=== PATIENT | female | born 1940 | race Caucasian/White ===

== ENCOUNTER 2017-09-04 08:48 | Emergency (ER) | payer MEDICARE, OTHER ==
[~2017-09-04] VITALS: Ht 167.6 cm; Wt 81.0 kg
[~2017-09-04 08:48] MED LIST: ASPI325T17 PO; ATOR20TA9 PO; COD1CAPS2 PO; GLUC1TAB21 PO; HYDR-3240 PO; LEVO112T2 PO; MULT-658 PO; TRAM50TA2 PO; TURM500C7 PO
[2017-09-04] MEDS ORDERED: DIPH,PERTUSS(ACELL),TET VAC/PF 0.5 ML IM-VACC ONE ×2 (09:30→09:46)
[2017-09-04 10:21] VITALS: BP 134/74
[2017-09-04] MEDS ORDERED: BACITRACIN ZINC OINT 500U/GM, 0.9 GM ONE (11:11)
== END 2017-09-04 11:23 | disposition home or self-care (01) ==
LOC: ED 09:40
DX: S30.0XXA Contusion of lower back and pelvis, initial encounter (principal); S09.90XA Unspecified injury of head, initial encounter; S50.311A Abrasion of right elbow, initial encounter; W19.XXXA Unspecified fall, initial encounter; Y93.89 Activity, other specified; Y92.312 Tennis court as the place of occurrence of the external cause; Y99.9 Unspecified external cause status
CPT/HCPCS: 70450; 72220; 90471; 90715; 99284

== ENCOUNTER → 2020-01-20 | Outpatient (CLI) | payer MEDICARE, OTHER ==
[~2020-01-20] MED LIST changes: +ASPI-496 PO; +ATOR20TA37 PO; -ATOR20TA9 PO; +CHOL500045 PO; -COD1CAPS2 PO; +COD1CAPS6 PO; +SENN-31 PO
== END | disposition home or self-care (01) ==
LOC: STAR 08:54
PROVIDERS: ATTEND Orthopaedic Surgery
DX: Z01.818 Encounter for other preprocedural examination (principal); Z11.59 Encounter for screening for other viral diseases; M19.072 Primary osteoarthritis, left ankle and foot
CPT/HCPCS: 36415; 87635; 93005

== ENCOUNTER 2020-01-24 09:32 | Day surgery (SDC) | payer MEDICARE, OTHER ==
[~2020-01-24] VITALS: Ht 167.6 cm; Wt 79.0 kg
[2020-01-24] MEDS ORDERED: CHLORHEXIDINE 15 ML UDC MM STA (09:44)
[2020-01-24] MEDS ORDERED: LACTATED RINGERS 1,000 ML IV SCH (09:44)
[2020-01-24 10:05] VITALS: BP 146/83
[2020-01-24] MEDS ORDERED: BUPIVACAINE/PF 0.5% ONE (11:49)
[2020-01-24] MEDS ORDERED: LIDOCAINE 1%, 20ML ONE (11:49)
[2020-01-24] MEDS ORDERED: DEXAMETHASONE 4 MG/ML, 1ML ONE (11:56)
[2020-01-24] MEDS ORDERED: CEFAZOLIN 1,000 MG ONE (11:56)
[2020-01-24] MEDS ORDERED: FENTANYL PF 100 MCG/2ML ONE (11:56)
[2020-01-24] MEDS ORDERED: ONDANSETRON 2MG/ML, 2ML ONE (11:56)
[2020-01-24] MEDS ORDERED: PROPOFOL 10 MG/ML, 20ML ONE (11:56)
[2020-01-24] MEDS ORDERED: EPHEDRINE 50 MG/ML, 1ML ONE (12:14)
[2020-01-24] MEDS ORDERED: GLYCOPYRROLATE 0.2MG/1ML, 5ML ONE (12:14)
[2020-01-24] MEDS ORDERED: MEPERIDINE/PF 25MG/0.5ML IVPush PRN (12:30)
[2020-01-24] MEDS ORDERED: PROMETHAZINE 25 MG/ML, 1ML IVPush PRN (12:30)
[2020-01-24] MEDS ORDERED: FENTANYL PF 100 MCG/2ML IV PRN (12:30)
[2020-01-24] MEDS ORDERED: OXYcodone 5 MG/5 ML ORAL.SOL UDC PO PRN (12:30)
[2020-01-24] MEDS ORDERED: HYDROmorphone 1 MG/ML, 1ML INJ IVPush PRN (12:30)
[2020-01-24] MEDS ORDERED: HYDROcodone/APAP 7.5-325MG/15ML UDC PO PRN (12:30)
== END 2020-01-24 15:40 | disposition home or self-care (01) ==
LOC: OUT 09:32
PROVIDERS: ATTEND Orthopaedic Surgery
DX: M20.12 Hallux valgus (acquired), left foot (principal); S93.125A Dislocation of metatarsophalangeal joint of left lesser toe(s), initial encounter; M20.42 Other hammer toe(s) (acquired), left foot; E07.9 Disorder of thyroid, unspecified; Z79.82 Long term (current) use of aspirin; Z79.890 Hormone replacement therapy; Z79.899 Other long term (current) drug therapy; Z88.5 Allergy status to narcotic agent; Z90.710 Acquired absence of both cervix and uterus; Z98.890 Other specified postprocedural states; Z82.3 Family history of stroke; Z82.49 Family history of ischemic heart disease and other diseases of the circulatory system; X58.XXXA Exposure to other specified factors, initial encounter; Y93.89 Activity, other specified; Y92.89 Other specified places as the place of occurrence of the external cause; Y99.8 Other external cause status
CPT/HCPCS: 28308; 28313; 28750; 73620; 76000; C1713; J0690; J1100; J2405; J2704; J3010; J7120

== ENCOUNTER → 2020-05-18 | Outpatient (CLI) | payer MEDICARE, OTHER | END | disposition home or self-care (01) | LOC: STAR 13:55 | PROVIDERS: ATTEND Anesthesiology | DX: Z20.828 Contact with and (suspected) exposure to other viral communicable diseases (principal) | CPT/HCPCS: 87635 ==